=== PATIENT | male | born 2000 | race Caucasian/White ===

== ENCOUNTER 2023-01-21 14:33 | Emergency (ER) | payer MEDICAID, SELFPAY ==
[2023-01-21 14:43] VITALS: BP 112/72; PULSE 89; RESP 16; TEMP 36.8; O2SAT 97; BMI 22.8
--- NOTE | 2023-01-21 14:52 | ED_ITS ---
HPI - Extremity Injury (Lower) General Chief Complaint: Extremity Injury, Lower Stated Complaint: L Knee Injury Time Seen by Provider: 01/21/23 14:49 Source: patient Mode of arrival: ambulatory Limitations: no limitations History of Present Illness HPI Narrative: 22-year-old male with no significant past medical history presents to the emergency department, with his friends, for complaints of left knee swelling. He reports he hit above his knee with a metal table at work causing immediate pain and subsequent swelling. He reports pain has subsided but swelling remains. He denies any erythema, ecchymosis, paresthesias, weakness, changes in gait or range of motion. Pertinent positives and negatives discussed in HPI. Review of Systems Review of Systems: Yes all other systems are reviewed and are negative [facility] Past Medical History Source: old records reviewed and nursing notes reviewed Physical Exam Vital Signs: Vital Signs: Last Vital Signs Temp 98.2 F 01/21/23 14:43 Pulse 89 01/21/23 14:43 Resp 16 01/21/23 14:43 BP 112/72 01/21/23 14:43 Pulse Ox 97 01/21/23 14:43 O2 Del Method Room Air 01/21/23 14:43 BMI result Body Mass Index 22.8 Nursing notes and vital signs reviewed. GENERAL APPEARANCE: A&0 x 4, generally well appearing, no acute distress HENMT: Normal to inspection, atraumatic, face symmetrical. Normal external ears, nose, and oropharynx clear. EYE: PERRLA, EOM intact, structures appear normal NECK: Supple without lymphadenopathy. No stiffness or restricted ROM. CHEST: Normal to inspection HEART: Normal rate and regular rhythm, normal S1/S2, no M/R/G LUNGS: LS CTA, moving air well. Able to speak in complete sentences. No crackles, wheezes, or rhonchi auscultated ABDOMEN: Soft, nontender, nondistended. Normal bowel sounds noted BACK: No CVAT, no obvious deformity EXTREMITIES: Moving all extremities without difficulty. No cyanosis, clubbing, or edema. Normal capillary refill. Soft tissue swelling noted above left knee without ecchymoses or erythema. NEUROLOGICAL: Alert and oriented, moving all 4 extremities with equal strength. CN not formally tested but appearing grossly intact. Observed to ambulate with normal gait. Cognition normal SKIN: Warm and dry without any lesions, rash, or visible sores PSYCH: Cooperative, normal affect, normal thought process Medical Decision Making Medical Decision Making [facility] Narrative: 1445: Old records reviewed for previous imaging, lab studies, ECGs, or notes. Patient was assessed the emergency department. No acute distress or toxicity noted. Patient is A&O x4, LS CTA, SILVEIRA x4 with good strength. Symptoms consistent with soft tissue contusion with low suspicion for fracture, dislocation, infection, or malignancy. Patient is safe for discharge at this time with plan for [id number] Tylenol and/or NSAID such as ibuprofen or naproxen for fever/discomfort with dosing as per packaging. HPI, PE, diagnostics, and plan discussed with patient and family with no unanswered questions at this time. Strict return precautions given to return to the emergency department with new, worsening, or concerning emergent symptoms. Recommended to follow-up with there primary care provider in 24-48 hours for further treatment and management. Discharge Plan Discharge Clinical Impression: Contusion of left knee and lower leg Patient Disposition: Home, Self-Care Instructions: Contusion in Adults (ED), R.I.C.E. Treatment (ED) Additional Instructions: You are safe for discharge at this time with plan for management of fever or discomfort with [id number] Tylenol and/or NSAID such as ibuprofen or naproxen with dosing as per packaging. Please return to the emergency department with new, worsening, or concerning emergent symptoms. Recommended to follow-up with your primary care provider in 24-48 hours for further treatment and management. Thank you for choosing [facility]. Referrals: [facility] [place] Family Medicine [Provider Group] [facility] [place] Primary CareJacklyn [Provider Group] [facility] [place] Primary Care[facility]ie[facility] [Provider Group] Stand Alone Forms: Work/School Release Print Language: Kazakh
== END 2023-01-21 15:03 | disposition home or self-care (01) ==
PROVIDERS: Emergency Provider Emergency Medicine Emergency Medical Services
DX: S80.02XA Contusion of left knee, initial encounter (principal); W18.30XA Fall on same level, unspecified, initial encounter; Y93.9 Activity, unspecified; Y92.9 Unspecified place or not applicable; Y99.9 Unspecified external cause status
CPT/HCPCS: 99282